=== PATIENT | female | born 1985 | race Hispanic/Latino ===

== ENCOUNTER 2024-06-20 17:28 | Emergency (ER) | payer BC ==
[~2024-06-20] VITALS: Ht 154.9 cm; Wt 68.0 kg
[2024-06-20 17:43] VITALS: BP 115/66; PULSE 75; RESP 18; TEMP 97.9; O2SAT 98
--- NOTE | 2024-06-20 18:08 | NUR ---
PT STATED SHE WOULD GO TO A HOSPITAL THAT HAD L&D AFTER PHONE CALL, PT TOLD BY STAFF WE CAN ADDRESS HER ISSUES , BUT STATED SHE FELT BETTER AND WANTED TO LEAVE, PT [phone]
--- NOTE | 2024-06-20 18:11 | ERN ---
General Chief Complaint: Abdominal Pain in Stated Complaint: ABD PAIN, 5 MONTHS OB (15 WEEKS) Time Seen by MD: 17:29 Source: patient History of Present Illness Initial Comments Patient is a 39-year-old female presenting with abdominal pain. Reports being approximately 15 weeks . The patient was triaged and put in hallway see when I attempted to see the patient she had eloped from the emergency department Allergies: Coded Allergies: No Known Drug Allergies (Unverified Allergy, Unknown, 06/20/24) Past Medical History Past Medical History: Asthma Past Surgical History: None Female( History) : 3 Para: 2 Aborts: 0 ROS Dictation Patient is a 39-year-old female presenting with abdominal pain. Reports being approximately 15 weeks . The patient was triaged and put in hallway see when I attempted to see the patient she had eloped from the emergency department Physical Exam Physical Exam Dictation Patient is a 39-year-old female presenting with abdominal pain. Reports being approximately 15 weeks . The patient was triaged and put in hallway see when I attempted to see the patient she had eloped from the emergency department MDM Patient is a 39-year-old female presenting with abdominal pain. Reports being approximately 15 weeks . The patient was triaged and put in hallway see when I attempted to see the patient she had eloped from the emergency department ED Course Orders Procedure Category Date Status Time Basic Metabolic Panel LAB 06/20/24 Logged 17:53 Cbc With Differential LAB 06/20/24 Logged 17:53 Urinalysis Profile LAB 06/20/24 Logged 17:53 Hcg,Quantitative LAB 06/20/24 Logged 17:53 Lipase LAB 06/20/24 Logged 17:53 Hepatic Function Panel LAB 06/20/24 Logged 17:53 Us Ob >14 Weeks US 06/20/24 Logged 17:53 Vital Signs Date Time Temp Pulse Resp B/P (MAP) Pulse Ox O2 Delivery O2 Flow Rate FiO2 06/20/24 17:43 97.9 75 18 115/66 98 Room Air* 0 21 06/20/24 17:33 97.9 75 18 115/66 100 Room Air DX & DISP Disposition: Other(Comment) (ELOPED) Departure Impression: Primary Impression: Eloped from emergency department Condition: Stable Referrals: SELF,REFERRAL (PCP) I have reviewed the case, and I agree with, Diagnosis and Plan I performed the substantive portion of the visit. I have reviewed and personally made and approve the management plan that is documented in the note by myself or the LOIDA. I acknowledge for responsibility for the patient's management plan. AGUSTO STRONG Jun 20, 2024 18:11
== END 2024-06-20 18:20 | disposition left against medical advice (07) ==
LOC: EDH 17:28
DX: O26.892 Other specified pregnancy related conditions, second trimester (principal); R10.84 Generalized abdominal pain; J45.909 Unspecified asthma, uncomplicated; Z3A.15 15 weeks gestation of pregnancy; Z53.21 Procedure and treatment not carried out due to patient leaving prior to being seen by health care provider